=== PATIENT | female | born 1945 | race Caucasian/White ===

== ENCOUNTER 2016-05-15 11:01 | Outpatient (CLI) | payer MEDICARE, MEDICAID ==
[2014-05-10 12:56] VITALS: BP 122/64
[2016-05-15 12:10] LABS: eGFR (African) > 60; eGFR (Non-African) > 60
== END 2016-05-15 11:02 ==
LOC: LAB 11:01
PROVIDERS: ATTEND Internal Medicine Cardiovascular Disease
DX: Z51.81 Encounter for therapeutic drug level monitoring (principal); Z79.01 Long term (current) use of anticoagulants
CPT/HCPCS: 36415; 80048; 85610

== ENCOUNTER 2016-05-31 11:30 | Outpatient (CLI) | payer MEDICARE, MEDICAID ==
[2014-05-10 12:56] VITALS: BP 122/64
[2016-05-31 12:22] LABS: eGFR (African) > 60; eGFR (Non-African) > 60
== END 2016-05-31 11:32 ==
LOC: LAB 11:30
PROVIDERS: ATTEND Internal Medicine Cardiovascular Disease
DX: Z51.81 Encounter for therapeutic drug level monitoring (principal); Z79.01 Long term (current) use of anticoagulants; I50.22 Chronic systolic (congestive) heart failure
CPT/HCPCS: 36415; 80048; 85610

== ENCOUNTER 2016-06-14 11:08 | Outpatient (CLI) | payer MEDICARE, MEDICAID ==
[2014-05-10 12:56] VITALS: BP 122/64
== END 2016-06-14 11:10 ==
LOC: LAB 11:08
PROVIDERS: ATTEND Internal Medicine Cardiovascular Disease
DX: Z51.81 Encounter for therapeutic drug level monitoring (principal); Z79.01 Long term (current) use of anticoagulants
CPT/HCPCS: 36415; 85610

== ENCOUNTER 2016-06-22 10:42 | Outpatient (CLI) | payer MEDICARE, MEDICAID ==
[2014-05-10 12:56] VITALS: BP 122/64
== END 2016-06-22 10:43 ==
LOC: LAB 10:42
PROVIDERS: ATTEND Internal Medicine Cardiovascular Disease
DX: Z51.81 Encounter for therapeutic drug level monitoring (principal); Z79.01 Long term (current) use of anticoagulants; I48.91 Unspecified atrial fibrillation
CPT/HCPCS: 36415; 85610

== ENCOUNTER 2016-06-26 14:55 | Emergency (ER) | payer MEDICARE, MEDICAID ==
--- NOTE | 2016-06-26 15:10 | ED Physician Documentation ---
Chest Pain - HISTORIAN Historian: patient - HPI Onset: other (for 5 weeks) Chest Pain Signs/Symptoms: denies: dyspnea Worsened By: nothing Further Comments: yes - ROS CONST: denies: recent illness, fever - PAST HX NH risk factors: other ( history of 2 previous heart attacks. Stress test/heart cath done in , stint was closing. 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 denies: hypertension, diabetes Type 2 Surgeries/Procedures: cardiac cath, stress test Allergies/Adverse Reactions: Allergies Allergy/AdvReac Type Severity Reaction Status Date / Time No Known Allergies Allergy Verified 06/26/16 15:33 Home Medications: Ambulatory Orders Medication Instructions Recorded Aspirin [Renate] 81 mg PO DAILY 05/08/14 Carvedilol 3.125 mg PO BID 05/08/14 Furosemide 40 mg PO DAILY 05/08/14 Monterey-3S/Dha/Epa/Fish Oil [[place]rey-3 1 each PO BID 05/08/14 Fish Oil 1,000 mg Sfgl] Ubidecarenone [Co Q-10] 1 tab PO DAILY 05/08/14 Warfarin Sodium [Coumadin] 2.5 mg PO DIRECTED 05/08/14 Benzonatate [Tessalon] 100 mg PO TID PRN #20 capsule 06/26/16 Spironolactone [Spironolactone] 25 mg PO AM 06/26/16 - SOCIAL HX Smoking History: quit greater than 1 year Alcohol Use: none - FAMILY HX Family HX: CAD under 55 - VITAL SIGNS Vital Signs: Vital Signs Temp Pulse Resp BP Pulse Ox 121/55 05/10/14 10:00 - REVIEWED ASSESSMENTS Nursing Assessment Reviewed: Yes Vitals Reviewed: Yes Progress - Progress Progress: 15:04 No change in pressure feeling with NTG. - EKG/XRAY/CT EKG: NSR Comments: no acute ischemic changes Discharge Prescriptions: Benzonatate [Tessalon] 100 mg PO TID PRN #20 capsule PRN Reason: Cough Home Medications: Ambulatory Orders Aspirin [Renate] 81 mg PO DAILY 05/08/14 Carvedilol 3.125 mg PO BID 05/08/14 Furosemide 40 mg PO DAILY 05/08/14 Monterey-3S/Dha/Epa/Fish Oil [Mon[place]rey-3 Fish Oil 1,000 mg Sfgl] 1 each PO BID Ubidecarenone [Co Q-10] 1 tab PO DAILY 05/08/14 Warfarin Sodium [Coumadin] 2.5 mg PO DIRECTED 05/08/14 Benzonatate [Tessalon] 100 mg PO TID PRN #20 capsule 06/26/16 Spironolactone [Spironolactone] 25 mg PO AM 06/26/16
[2016-06-26] MEDS ORDERED: NITROGLYCERIN 0.4 MG TAB.SUBL SL PRN (15:17)
[2016-06-26] MEDS ORDERED: NITROGLYCERIN 0.4 MG TAB.SUBL SL ONE (15:22)
[2016-06-26 15:27] LABS: BASOPHILS % 0.4 (0.0-1.5); EOSINOPHILS % 6.1 % (0.0-6.8); LYMPHOCYTES # 2.3 # k/uL (0.6-4.0); MONOCYTES # 0.4 # k/uL (0.0-0.9); MONOCYTES % 4.9 % (0.0-11.0); NEUTROPHILS # 5.4 # k/uL (1.4-7.7)
[2016-06-26 15:43] LABS: eGFR (African) > 60; eGFR (Non-African) > 60
--- NOTE | 2016-06-26 16:05 | Diagnostic Imaging Report ---
ALEX HIRSCH [facility] [id number] On License Of [facility] [address] [address] Report Submission Date: Jun 26, 2016 4:03:57 PM FLOOR COVERINGS INSTALLER Patient Study Name: MACIE CARTER Date: Jun 26, 2016 3:48:25 PM FLOOR COVERINGS INSTALLER Modality Type: CR Gender: F Description: CHEST : 45 Institution: [facility] Physician: ALEX HIRSCH 2 views of the chest History: Chest pain Findings: Comparison: May 09, 2014 Cardiac size upper limits of normal. Patient is post sternotomy. Aortic calcification is present. Calcified granuloma is noted at the right lung base There is no focal consolidation, pleural effusion or pneumothorax. Of there is minimal right basilar atelectasis Degenerative changes of thoracic spine are present Impression: Minimal right basilar atelectasis. Mild cardiomegaly Electronically signed on Jun 26, 2016 4:03:57 PM FLOOR COVERINGS INSTALLER by: Mary NICOLE
[2016-06-26 16:51] VITALS: BP 121/66
== END 2016-06-26 16:49 | disposition home or self-care (01) ==
LOC: ED 14:55
DX: R07.9 Chest pain, unspecified (principal); R06.02 Shortness of breath; Z87.891 Personal history of nicotine dependence
CPT/HCPCS: 71020; 80053; 84484; 85025; 85610; 99283; 99284; S1016

== ENCOUNTER 2016-07-06 11:06 | Outpatient (CLI) | payer MEDICARE, MEDICAID | END 2016-07-06 11:07 | LOC: LAB 11:06 | PROVIDERS: ATTEND Internal Medicine Cardiovascular Disease | DX: Z79.01 Long term (current) use of anticoagulants (principal) | CPT/HCPCS: 36415; 85610 ==

== ENCOUNTER 2016-08-03 10:27 | Outpatient (CLI) | payer MEDICARE, MEDICAID | END 2016-08-03 10:30 | LOC: LAB 10:27 | PROVIDERS: ATTEND Internal Medicine Cardiovascular Disease | DX: Z51.81 Encounter for therapeutic drug level monitoring (principal); Z79.01 Long term (current) use of anticoagulants; I48.0 Paroxysmal atrial fibrillation | CPT/HCPCS: 36415; 85610 ==

== ENCOUNTER 2016-08-24 10:14 | Outpatient (CLI) | payer MEDICARE, MEDICAID | END 2016-08-24 10:16 | LOC: LAB 10:14 | PROVIDERS: ATTEND Internal Medicine Cardiovascular Disease | DX: Z51.81 Encounter for therapeutic drug level monitoring (principal); Z79.01 Long term (current) use of anticoagulants | CPT/HCPCS: 36415; 85610 ==

== ENCOUNTER 2016-09-24 09:18 | Outpatient (CLI) | payer MEDICARE, MEDICAID | END 2016-09-24 09:20 | LOC: LAB 09:18 | PROVIDERS: ATTEND Internal Medicine Cardiovascular Disease | DX: Z79.01 Long term (current) use of anticoagulants (principal) | CPT/HCPCS: 36415; 85610 ==

== ENCOUNTER 2016-10-26 10:54 | Outpatient (CLI) | payer MEDICARE, MEDICAID | END 2016-10-26 11:06 | LOC: LAB 10:54 | PROVIDERS: ATTEND Internal Medicine Cardiovascular Disease | DX: Z79.01 Long term (current) use of anticoagulants (principal) | CPT/HCPCS: 36415; 85610 ==

== ENCOUNTER 2016-11-23 09:20 | Outpatient (CLI) | payer MEDICARE, OTHER | END 2016-11-23 09:21 | LOC: LAB 09:20 | PROVIDERS: ATTEND Internal Medicine Cardiovascular Disease | DX: Z79.01 Long term (current) use of anticoagulants (principal) | CPT/HCPCS: 36415; 85610 ==

== ENCOUNTER 2016-12-05 10:42 | Outpatient (CLI) | payer MEDICARE, OTHER | END 2016-12-05 10:44 | LOC: LAB 10:42 | PROVIDERS: ATTEND Internal Medicine Cardiovascular Disease | DX: Z95.1 Presence of aortocoronary bypass graft (principal); Z79.01 Long term (current) use of anticoagulants | CPT/HCPCS: 36415; 85610 ==

== ENCOUNTER 2016-12-12 10:02 | Outpatient (CLI) | payer MEDICARE, OTHER | END 2016-12-12 10:03 | LOC: LAB 10:02 | PROVIDERS: ATTEND Internal Medicine Cardiovascular Disease | DX: Z79.01 Long term (current) use of anticoagulants (principal) | CPT/HCPCS: 36415; 85610 ==

== ENCOUNTER 2016-12-26 10:17 | Outpatient (CLI) | payer MEDICARE, OTHER | END 2016-12-26 10:25 | LOC: LAB 10:17 | PROVIDERS: ATTEND Internal Medicine Cardiovascular Disease | DX: Z79.01 Long term (current) use of anticoagulants (principal) | CPT/HCPCS: 36415; 85610 ==

== ENCOUNTER 2017-01-21 10:33 | Outpatient (CLI) | payer MEDICARE, OTHER | END 2017-01-21 10:34 | LOC: LAB 10:33 | PROVIDERS: ATTEND Internal Medicine Cardiovascular Disease | DX: Z79.01 Long term (current) use of anticoagulants (principal) | CPT/HCPCS: 36415; 85610 ==

== ENCOUNTER 2017-01-23 11:49 | Outpatient (CLI) | payer MEDICARE, OTHER ==
[2017-01-23] MEDS ORDERED: ALBUTEROL SULFATE 2.5 MG/3 ML AMPUL.NEB NEB ONE (11:57)
[2017-01-23 12:27] LABS: eGFR (African) > 60; eGFR (Non-African) > 60
== END 2017-01-23 11:50 ==
LOC: RT 11:49
PROVIDERS: ATTEND Family Medicine
DX: R05 Cough (principal)
CPT/HCPCS: 36415; 80048; 94060

== ENCOUNTER 2017-01-28 09:48 | Outpatient (CLI) | payer MEDICARE, OTHER ==
--- NOTE | 2017-01-28 11:32 | Diagnostic Imaging Report ---
[facility] [address] [facility].[address] [address] Report Submission Date: Jan 28, 2017 10:58:44 AM CDT Patient Study Name: MACIE CARTER Date: Jan 28, 2017 10:18:11 AM CDT Modality Type: CT\SR Gender: F Description: CT CHEST W/ CONTRAST : 45 Institution: [facility] Physician: WILMAR FRANKEL - STACEY Examination: CT chest History: Chronic cough Comparison exams: Plain film chest dated 26 June 2016 Technique: CT chest with contrast protocol Findings: Scattered emphysematous changes, primarily at the apices. No evidence for spiculated mass or lesion. Calcified granuloma at the right lung base. No posterior pleural thickening or effusion. Anterior mediastinum and sav are without mass or pathologic appearing adenopathy. Few calcified lymph nodes. Thoracic aorta demonstrates peripheral atherosclerotic disease and mural thickening. Cardiac silhouette not enlarged. No pericardial effusion. Coronary vascular calcifications. Lower neck structures without gross abnormality. Osseous structures demonstrate degenerative changes. Sternotomy wires. Gallstones within the gallbladder - no adjacent inflammation. Renal cortical and vascular calcifications. Small hiatal hernia. Remaining upper abdominal organs without acute process. Impression: Scattered emphysematous changes. No suspicious mass/lesion. Gallstones: Not formally evaluated. Small hiatal hernia. Electronically signed on Jan 28, 2017 10:58:44 AM CDT by: Darrion NICOLE
== END 2017-01-28 09:50 ==
LOC: RAD 09:48
PROVIDERS: ATTEND Family Medicine
DX: R05 Cough (principal)
CPT/HCPCS: 71260; Q9966

== ENCOUNTER 2017-02-04 07:10 | Day surgery (SDC) | payer MEDICARE, OTHER ==
[2017-02-04] MEDS ORDERED: PROPOFOL 500 MG/50 ML VIAL IV ONE (08:00)
[2017-02-04] MEDS ORDERED: LACTATED RINGERS 1,000 ML IV.SOLN IV ONE (08:00)
[2017-02-04] MEDS ORDERED: SALINE FLUSH 10 ML DISP.SYRIN IVF ONE (08:00)
--- NOTE | 2017-02-04 14:18 | GI Report ---
REFERRING PHYSICIAN: Dr. Shonna Bill TITLE SEARCH MANAGER: Mayur Chun MD PROCEDURE MEDICATION: Propofol as per anesthesia. INDICATIONS: This 71-year-old woman has apparently had a little bit of epigastric discomfort. She is not a great historian. She denies vomiting. She denies a history of ulcer disease. She has had a hiatal hernia. She does have central obesity. PROCEDURE PERFORMED: Endoscopy and esophageal dilatation with biopsies followed by a colonoscopy. PROCEDURE: An Olympus video endoscope is passed through the esophagus under direct visualization. She does have what appears to be a slight stricture at the GE junction and grade 2 esophagitis. In the stomach, cardia shows a hiatal hernia. Fundus and body of antrum with mild gastritis. Biopsies for H. Pylori taken. Duodenal bulb and first and second part of the duodenum exam were normal. A guidewire is placed in the stomach. Endoscope is removed and up to a 16 mm, which is a 48 Swedish, passed without resistance. The endoscope was reintroduced. There was a little friability but no bleeding after the dilatation. Again, biopsies were taken of the GE junction. The patient tolerated the procedure well, though she had transient drop in oxygen saturation , though it immediately came back up. FINDINGS: 1. Distal esophagitis and stricture dilated to a 48-Swedish and biopsied. 2. Hiatal hernia. 3. Gastritis. RECOMMENDATIONS: 1. Will be on a PPI at a.c. first meal daily. 2. Elevate the head of the bed. 3. Smaller meals. 4. Not eating late at night would be beneficial. 5. Follow up biopsy results. cc: Dr. Shonna NICOLE
--- NOTE | 2017-02-04 14:26 | GI Report ---
REFERRING PHYSICIAN: Dr. Shonna Bill SKILLED LABORER: Mayur Chun MD PROCEDURE MEDICATION: Propofol as per anesthesia. INDICATIONS: The patient has had previous polyps on the last 2 colonoscopies. The last colonoscopy was over 5 years ago. She denies changes in bowel habits or bleeding. PROCEDURE PERFORMED: Colonoscopy. PROCEDURE: An Olympus video colonoscope was advanced through the rectum. She does have some diverticular disease of the sigmoid and descending colon. A slightly atonic redundant colon, though we were able to advance all the way to the cecum. The appendiceal orifice and ileocecal valve looked normal. On slow withdrawal, the cecum, ascending colon, and transverse colon with no obvious intraluminal lesions noted. The descending colon and sigmoid with scattered diverticula but no diverticulitis. No obvious intraluminal lesions were noted. Retroflexion of the rectum was normal. Patient tolerated the procedure well. FINDINGS: 1. Mild diverticular disease of the colon. 2. An atonic redundant colon. 3. No polyps seen. RECOMMENDATIONS: 1. High-fiber diet. 2. Follow up with Dr. Bill. 3. Consider re-looking at her colon within 10 years, sooner if clinically indicated. cc: Dr. Shonna NICOLE
== END 2017-02-04 07:11 ==
LOC: OPSURG 07:10
PROVIDERS: ATTEND Internal Medicine Gastroenterology
DX: K21.0 Gastro-esophageal reflux disease with esophagitis (principal); K29.70 Gastritis, unspecified, without bleeding; K22.2 Esophageal obstruction; K44.9 Diaphragmatic hernia without obstruction or gangrene; K57.30 Diverticulosis of large intestine without perforation or abscess without bleeding; K59.8 Other specified functional intestinal disorders; Z86.010 Personal history of colon polyps; E66.8 Other obesity; R10.84 Generalized abdominal pain
CPT/HCPCS: 36415; 43239; 43248; 45378; 85610; 88305; J2704; J7120; S1016

== ENCOUNTER 2017-02-14 09:37 | Outpatient (CLI) | payer MEDICARE, OTHER ==
[2017-02-14 10:29] LABS: eGFR (African) > 60; eGFR (Non-African) > 60
== END 2017-02-14 09:40 ==
LOC: LAB 09:37
PROVIDERS: ATTEND Internal Medicine Cardiovascular Disease
DX: Z79.01 Long term (current) use of anticoagulants (principal)
CPT/HCPCS: 36415; 80048; 85610

== ENCOUNTER 2017-02-28 12:11 | Outpatient (CLI) | payer MEDICARE, OTHER | END 2017-02-28 12:12 | LOC: LAB 12:11 | PROVIDERS: ATTEND Internal Medicine Cardiovascular Disease | DX: I50.22 Chronic systolic (congestive) heart failure (principal); Z79.01 Long term (current) use of anticoagulants | CPT/HCPCS: 36415; 85610 ==

== ENCOUNTER 2017-03-28 09:08 | Outpatient (CLI) | payer MEDICARE, OTHER | END 2017-03-28 11:25 | LOC: LAB 09:08 | PROVIDERS: ATTEND Internal Medicine Cardiovascular Disease | DX: Z79.01 Long term (current) use of anticoagulants (principal) | CPT/HCPCS: 36415; 85610 ==

== ENCOUNTER 2017-04-26 10:42 | Outpatient (CLI) | payer MEDICARE, OTHER | END 2017-04-26 11:45 | LOC: LAB 10:42 | PROVIDERS: ATTEND Internal Medicine Cardiovascular Disease | DX: I25.10 Atherosclerotic heart disease of native coronary artery without angina pectoris (principal); I50.22 Chronic systolic (congestive) heart failure | CPT/HCPCS: 36415; 85610 ==

== ENCOUNTER 2017-05-03 10:26 | Outpatient (CLI) | payer MEDICARE | END 2017-05-03 10:30 | LOC: LAB 10:26 | PROVIDERS: ATTEND Internal Medicine Cardiovascular Disease | DX: I25.10 Atherosclerotic heart disease of native coronary artery without angina pectoris (principal); I50.22 Chronic systolic (congestive) heart failure | CPT/HCPCS: 36415; 85610 ==

== ENCOUNTER 2017-05-09 10:50 | Outpatient (CLI) | payer MEDICARE | END 2017-05-09 10:52 | LOC: LAB 10:50 | PROVIDERS: ATTEND Internal Medicine Cardiovascular Disease | DX: I25.10 Atherosclerotic heart disease of native coronary artery without angina pectoris (principal); I50.22 Chronic systolic (congestive) heart failure | CPT/HCPCS: 36415; 85610 ==

== ENCOUNTER 2017-05-21 20:40 | Emergency (ER) | payer MEDICARE, OTHER ==
[2017-05-21] MEDS ORDERED: OXYMETAZOLINE HCL 0.05% NASAL SPRAY NS ONE (21:05)
--- NOTE | 2017-05-21 21:10 | ED Physician Documentation ---
Epistaxis - HISTORIAN Historian: patient, child - HPI Stated Complaint: NOSEBLEED Chief Complaint: Epistaxis Additional Information: epistaxis onset int since 1700-ess stopped now lt nostril. pt is on coumadin plavix and asa-last protime 2 weeks ago sched for another 2 days Onset: hours (1700) Timing: better Location: left Severity: mild Associated Symptoms: denies: recent injury, recent illness, fever, chills, sweating - ROS MS/SKIN/LYMPH: denies: excessive bruising, bleeding from gums, bleeding from GI , bleeding from EYES/ENT: denies: problems with vision, sore throat GI/: denies: problems urinating CVS/RESP: denies: chest pain, difficulty breathing NEURO/PSYCH: denies: dizziness, anxiety, depression - PAST HX Past History: previous nosebleeds Other History: cardiac disease, other (hypothryoid. pt has also hilda cabg lx 2w and multi stents pacemaker defibrillator) Immunizations: UTD Allergies/Adverse Reactions: Allergies Allergy/AdvReac Type Severity Reaction Status Date / Time No Known Allergies Allergy Verified 05/21/17 21:06 Home Medications: Ambulatory Orders Medication Instructions Recorded Aspirin [Renate] 81 mg PO DAILY 05/08/14 Carvedilol 3.125 mg PO BID 05/08/14 Perry-3S/Dha/Epa/Fish Oil [Perry-3 1 each PO BID 05/08/14 Fish Oil 1,000 mg Sfgl] Ubidecarenone [Co Q-10] 1 tab PO DAILY 05/08/14 Benzonatate [Tessalon] 100 mg PO TID PRN #20 capsule 06/26/16 Spironolactone [Spironolactone] 25 mg PO AM 06/26/16 - SOCIAL HX Smoking History: non-smoker (for 30 yrs) Alcohol Use: none Drug Use: none - FAMILY HX Family History: No - VITAL SIGNS Vital Signs: Vital Signs Temp Pulse Resp BP Pulse Ox 98.4 F 77 20 152/72 96 05/21/17 20:40 05/21/17 20:40 05/21/17 20:40 05/21/17 20:40 05/21/17 20:40 - REVIEWED ASSESSMENTS Nursing Assessment Reviewed: Yes Vitals Reviewed: Yes ED Results Lab/Radiology - Lab Results Lab Results: INR= 2.37 - Orders Orders: ED Orders Category Date Time Status PT [PT-INR] Routine Lab 05/21/17 Ordered Oxymetazoline HCl [Afrin 0.05%] Med 05/21/17 21:05 Once 1 spray NS NOW ONE Epistaxis Physical Exam - EXAM General Appearance: mild distress Nose: no active bleeding (lt nares quite red w/ occ bloting w/kleenex) Head/Neck: atraumatic, thyroid nml. No: facial swelling, erythema Eyes/Ears: eyes nml inspection Mouth: pharynx nml. No: bleeding from nasopharynx Neuro/Psych: oriented x3, neuro intact, mood/affect nml. No: disoriented Respiratory: no resp distress, breath sounds normal CVS: reg rate & rhythm, heart sounds normal Abdomen: non-tender Skin: nml color, no skin rash. No: pallor, cyanosis, skin rash, ecchymosis Discharge Clincal Impression: ACUTE EPISTAXIS, MULTI ANTICOAGULANT, ISCHEMIC HEART DISEASE Referrals: Shonna Bill MD [Primary Care Provider] - 2 Days Additional Instructions: USE NEOSYNEPHRINE W/ COTTON PLEDGET TO BLEEDING SITE DIRECTED-SEE PCP TOMORROW Condition: Good Disposition: 01 HOME, SELF-CARE Decision to Admit: NO Decision Time: 21:42
[2017-05-21 22:19] VITALS: BP 155/50
== END 2017-05-21 21:50 | disposition home or self-care (01) ==
LOC: ED 20:40
DX: R04.0 Epistaxis (principal); I25.9 Chronic ischemic heart disease, unspecified; Z79.01 Long term (current) use of anticoagulants
CPT/HCPCS: 85610; 99282

== ENCOUNTER 2017-06-04 09:32 | Outpatient (CLI) | payer MEDICARE, OTHER ==
[2017-06-04 09:48] LABS: BASOPHILS % 1.2 (0.0-1.5); EOSINOPHILS % 4.4 % (0.0-6.8); MEAN CORPUSCULAR HEMOGLOBIN 31.6 pg (28.0-34.0); MEAN CORPUSCULAR VOLUME 96.1 fl (80.0-100.0); MONOCYTES % 6.4 % (0.0-11.0); NEUTROPHILS # 4.6 # k/uL (1.4-7.7)
[2017-06-04 11:45] LABS: eGFR (African) > 60; eGFR (Non-African) > 60
== END 2017-06-04 09:33 ==
LOC: LAB 09:32
PROVIDERS: ATTEND Family Medicine
DX: I25.10 Atherosclerotic heart disease of native coronary artery without angina pectoris (principal); D64.9 Anemia, unspecified; E03.9 Hypothyroidism, unspecified
CPT/HCPCS: 36415; 80053; 80061; 84443; 85025

== ENCOUNTER 2017-06-21 10:57 | Outpatient (CLI) | payer MEDICARE, OTHER | END 2017-06-21 11:00 | LOC: LAB 10:57 | PROVIDERS: ATTEND Internal Medicine Cardiovascular Disease | DX: I25.10 Atherosclerotic heart disease of native coronary artery without angina pectoris (principal); I50.22 Chronic systolic (congestive) heart failure | CPT/HCPCS: 36415; 85610 ==

== ENCOUNTER 2017-07-16 11:49 | Outpatient (CLI) | payer MEDICARE, OTHER | END 2017-07-16 11:50 | LOC: LAB 11:49 | PROVIDERS: ATTEND Internal Medicine Cardiovascular Disease | DX: I25.10 Atherosclerotic heart disease of native coronary artery without angina pectoris (principal); I50.22 Chronic systolic (congestive) heart failure | CPT/HCPCS: 36415; 85610 ==

== ENCOUNTER 2017-08-13 10:48 | Outpatient (CLI) | payer MEDICARE, MEDICAID | END 2017-08-13 10:50 | LOC: LAB 10:48 | PROVIDERS: ATTEND Internal Medicine Cardiovascular Disease | DX: I25.10 Atherosclerotic heart disease of native coronary artery without angina pectoris (principal); I50.22 Chronic systolic (congestive) heart failure | CPT/HCPCS: 36415; 85610 ==

== ENCOUNTER 2017-09-12 10:28 | Outpatient (CLI) | payer MEDICARE, MEDICAID | END 2017-09-12 10:30 | LOC: LAB 10:28 | PROVIDERS: ATTEND Internal Medicine Cardiovascular Disease | DX: I25.10 Atherosclerotic heart disease of native coronary artery without angina pectoris (principal); I50.22 Chronic systolic (congestive) heart failure | CPT/HCPCS: 36415; 85610 ==

== ENCOUNTER 2017-10-11 12:02 | Outpatient (CLI) | payer MEDICARE, OTHER | END 2017-10-11 12:04 | LOC: LAB 12:02 | PROVIDERS: ATTEND Internal Medicine Cardiovascular Disease | DX: I50.22 Chronic systolic (congestive) heart failure (principal); I25.10 Atherosclerotic heart disease of native coronary artery without angina pectoris | CPT/HCPCS: 36415; 85610 ==

== ENCOUNTER 2017-10-21 14:43 | Outpatient (CLI) | payer MEDICARE, OTHER | END 2017-10-21 14:44 | LOC: LAB 14:43 | PROVIDERS: ATTEND Internal Medicine Cardiovascular Disease | DX: Z79.01 Long term (current) use of anticoagulants (principal) | CPT/HCPCS: 36415; 85610 ==

== ENCOUNTER 2017-11-20 10:25 | Outpatient (CLI) | payer MEDICARE, OTHER | END 2017-11-20 10:26 | LOC: LAB 10:25 | PROVIDERS: ATTEND Internal Medicine Cardiovascular Disease | DX: I25.10 Atherosclerotic heart disease of native coronary artery without angina pectoris (principal); I50.22 Chronic systolic (congestive) heart failure | CPT/HCPCS: 36415; 85610 ==

== ENCOUNTER 2017-12-24 10:29 | Outpatient (CLI) | payer MEDICARE, OTHER | END 2017-12-24 13:51 | LOC: LAB 10:29 | PROVIDERS: ATTEND Internal Medicine Cardiovascular Disease | DX: I25.10 Atherosclerotic heart disease of native coronary artery without angina pectoris (principal); I50.22 Chronic systolic (congestive) heart failure | CPT/HCPCS: 36415; 85610 ==

== ENCOUNTER 2018-01-21 10:01 | Outpatient (CLI) | payer MEDICARE, OTHER | END 2018-01-21 10:03 | LOC: LAB 10:01 | PROVIDERS: ATTEND Internal Medicine Cardiovascular Disease | DX: I25.10 Atherosclerotic heart disease of native coronary artery without angina pectoris (principal); I50.22 Chronic systolic (congestive) heart failure | CPT/HCPCS: 36415; 85610 ==

== ENCOUNTER 2018-01-23 10:37 | Outpatient (CLI) | payer MEDICARE, OTHER ==
[2018-01-23 11:09] LABS: eGFR (Non-African) > 60
== END 2018-01-23 10:40 ==
LOC: LAB 10:37
PROVIDERS: ATTEND Internal Medicine Cardiovascular Disease
DX: I50.22 Chronic systolic (congestive) heart failure (principal)
CPT/HCPCS: 36415; 80048

== ENCOUNTER 2018-02-13 10:57 | Outpatient (CLI) | payer MEDICARE, OTHER ==
[2018-02-13 12:32] LABS: eGFR (Non-African) > 60
== END 2018-02-13 11:00 ==
LOC: LAB 10:57
PROVIDERS: ATTEND Internal Medicine Cardiovascular Disease
DX: I25.10 Atherosclerotic heart disease of native coronary artery without angina pectoris (principal); I50.22 Chronic systolic (congestive) heart failure
CPT/HCPCS: 36415; 80048; 85610

== ENCOUNTER 2018-03-13 11:51 | Outpatient (CLI) | payer MEDICARE, OTHER | END 2018-03-13 11:53 | LOC: LAB 11:51 | PROVIDERS: ATTEND Internal Medicine Cardiovascular Disease | DX: I25.10 Atherosclerotic heart disease of native coronary artery without angina pectoris (principal); I50.22 Chronic systolic (congestive) heart failure | CPT/HCPCS: 36415; 85610 ==

== ENCOUNTER 2018-03-27 11:17 | Outpatient (CLI) | payer MEDICARE, OTHER ==
[2018-03-27 12:08] LABS: eGFR (Non-African) > 60
== END 2018-03-27 11:22 | disposition home or self-care (01) ==
LOC: LAB 11:17
PROVIDERS: ATTEND Internal Medicine Cardiovascular Disease
DX: I25.10 Atherosclerotic heart disease of native coronary artery without angina pectoris (principal); I50.22 Chronic systolic (congestive) heart failure
CPT/HCPCS: 36415; 80048; 85610

== ENCOUNTER 2018-04-09 10:36 | Outpatient (CLI) | payer MEDICARE, OTHER ==
[2018-04-09 14:12] LABS: eGFR (Non-African) > 60
== END 2018-04-09 10:38 ==
LOC: LAB 10:36
PROVIDERS: ATTEND Internal Medicine Cardiovascular Disease
DX: I25.10 Atherosclerotic heart disease of native coronary artery without angina pectoris (principal); I50.22 Chronic systolic (congestive) heart failure
CPT/HCPCS: 36415; 80048; 85610

== ENCOUNTER 2018-04-16 10:13 | Outpatient (CLI) | payer MEDICARE, OTHER | END 2018-04-16 10:14 | LOC: LAB 10:13 | PROVIDERS: ATTEND Internal Medicine Cardiovascular Disease | DX: Z79.01 Long term (current) use of anticoagulants (principal) | CPT/HCPCS: 36415; 85610 ==

== ENCOUNTER 2018-04-23 10:22 | Outpatient (CLI) | payer MEDICARE, OTHER ==
[2018-04-23 17:28] LABS: eGFR (Non-African) > 60
== END 2018-04-23 10:23 ==
LOC: LAB 10:22
PROVIDERS: ATTEND Internal Medicine Cardiovascular Disease
DX: I50.22 Chronic systolic (congestive) heart failure (principal)
CPT/HCPCS: 36415; 80048; 85610

== ENCOUNTER 2018-05-08 10:34 | Outpatient (CLI) | payer MEDICARE, OTHER | END 2018-05-08 10:36 | LOC: LAB 10:34 | PROVIDERS: ATTEND Internal Medicine Cardiovascular Disease | DX: Z79.01 Long term (current) use of anticoagulants (principal) | CPT/HCPCS: 36415; 85610 ==

== ENCOUNTER 2018-05-14 10:20 | Outpatient (CLI) | payer MEDICARE, OTHER | END 2018-05-14 10:22 | LOC: LAB 10:20 | PROVIDERS: ATTEND Internal Medicine Cardiovascular Disease | DX: Z79.01 Long term (current) use of anticoagulants (principal); Z51.81 Encounter for therapeutic drug level monitoring | CPT/HCPCS: 36415; 85610 ==

== ENCOUNTER 2018-05-30 10:04 | Outpatient (CLI) | payer MEDICARE, OTHER | END 2018-05-30 10:10 | LOC: LAB 10:04 | PROVIDERS: ATTEND Internal Medicine Cardiovascular Disease | DX: Z79.01 Long term (current) use of anticoagulants (principal); Z51.81 Encounter for therapeutic drug level monitoring | CPT/HCPCS: 36415; 85610 ==

== ENCOUNTER 2018-06-16 10:11 | Outpatient (CLI) | payer MEDICARE, OTHER | END 2018-06-16 10:20 | LOC: LAB 10:11 | PROVIDERS: ATTEND Internal Medicine Cardiovascular Disease | DX: Z79.01 Long term (current) use of anticoagulants (principal) | CPT/HCPCS: 36415; 85610 ==

== ENCOUNTER 2018-06-25 11:34 | Outpatient (CLI) | payer MEDICARE, OTHER | END 2018-06-25 11:36 | LOC: LAB 11:34 | PROVIDERS: ATTEND Internal Medicine Cardiovascular Disease | DX: Z79.01 Long term (current) use of anticoagulants (principal) | CPT/HCPCS: 36415; 85610 ==

== ENCOUNTER 2018-07-09 09:08 | Outpatient (CLI) | payer MEDICARE, MEDICAID ==
--- NOTE | 2018-07-09 15:21 | Diagnostic Imaging Report ---
AGUS ESCOTO [facility] [address] [facility] [address] [place], [place]. [address] Report Submission Date: Jul 09, 2018 2:43:12 PM DIE BAKER Patient Study Name: MARLENE NEVILLE Date: Jul 09, 2018 1:54:18 PM DIE BAKER Modality Type: CT\SR Gender: F Description: CT PELVIS W/O CONTRAST : [birth year] Institution: [facility] Physician: AGUS ESCOTO Exam: CT pelvis without contrast. History: Follow-up right hip fracture. Axial images through the right hip are submitted along with sagittal and coronal reformatted images. An intramedullary device in the proximal right femur is noted. A healed right intertrochanteric fracture is noted. Mild narrowing, sclerosis and spurring of both hip joints are noted. Narrowing, sclerosis and spurring at the symphysis pubis is noted. No acute fracture of the pubis bones are noted. No other soft tissue abnormalities are identified. Impression: Status post ORIF proximal right femur fracture. Degenerative changes in both hip joints and at the symphysis pubis. No pubic bone fractures are identified. Electronically signed on Jul 09, 2018 2:43:12 PM DIE BAKER by: Samuel NICOLE
--- NOTE | 2018-07-09 15:33 | Diagnostic Imaging Report ---
WILMAR FRANKEL [facility] [address] [facility] [address] [address] Report Submission Date: Jul 09, 2018 2:44:42 PM PBX REPAIRER Patient Study Name: MACIE CARTER Date: Jul 09, 2018 2:06:55 PM PBX REPAIRER Modality Type: US Gender: F Description: US ABDOMEN LIMITED : 45 Institution: [facility] Physician: WILMAR FRANKEL Examination: Ultrasound gallbladder History: Epigastric discomfort Findings: Sonographic evaluation of the right upper quadrant demonstrates the gallbladder with numerous stones. Gallbladder wall measures 2.4 mm. Common bile duct measures 3.5 mm. No intrahepatic biliary dilation. Liver demonstrates normal homogeneous echogenicity. No mass or cyst. Normal flow on color analysis. Normal portal vein Doppler waveform. Right kidney measures 8.3 cm in length. No cortical mass or cyst. No hydronephrosis. Pancreatic region without gross irregularity. Impression: Gallstones. No abnormal gallbladder wall thickening. No abnormal common bile duct dilation. Electronically signed on Jul 09, 2018 2:44:42 PM PBX REPAIRER by: Darrion NICOLE
== END 2018-07-09 09:10 ==
LOC: LAB 09:08
PROVIDERS: ATTEND Internal Medicine Cardiovascular Disease
DX: Z79.01 Long term (current) use of anticoagulants (principal); K80.20 Calculus of gallbladder without cholecystitis without obstruction; R10.11 Right upper quadrant pain
CPT/HCPCS: 36415; 76705; 85610

== ENCOUNTER 2018-08-01 10:31 | Outpatient (CLI) | payer MEDICARE, MEDICAID | END 2018-08-01 10:40 | LOC: LAB 10:31 | PROVIDERS: ATTEND Internal Medicine Cardiovascular Disease | DX: Z79.01 Long term (current) use of anticoagulants (principal) | CPT/HCPCS: 36415; 85610 ==

== ENCOUNTER 2018-08-11 10:17 | Outpatient (CLI) | payer MEDICARE, MEDICAID | END 2018-08-11 10:19 | LOC: LAB 10:17 | PROVIDERS: ATTEND Internal Medicine Cardiovascular Disease | DX: Z79.01 Long term (current) use of anticoagulants (principal) | CPT/HCPCS: 36415; 85610 ==

== ENCOUNTER 2018-08-15 12:01 | Outpatient (CLI) | payer MEDICARE, MEDICAID ==
--- NOTE | 2018-08-15 13:06 | Diagnostic Imaging Report ---
CHERYL ESCOTO [facility] [address] [facility] [address] [address] Report Submission Date: Aug 15, 2018 12:53:47 PM CDT Patient Study Name: MACIE CARTER Date: Aug 15, 2018 12:10:20 PM CDT Modality Type: DX Gender: F Description: L SPINE 2 OR 3 VIEWS : 45 Institution: [facility] Physician: CHERYL ESCOTO Examination: Plain film lumbar spine History: RIGHT SIDE BACK PAIN, NO TRAUMA Findings: 3 views of the lumbar spine demonstrates osteopenia. No anterior compression. Scattered osteophytes. Curvature to the left. Vascular calcifications. Impression: Osteopenia, curvature and degenerative changes. No compression deformity. Electronically signed on Aug 15, 2018 12:53:47 PM CDT by: Darrion NICOLE
--- NOTE | 2018-08-15 13:07 | Diagnostic Imaging Report ---
CHERYL ESCOTO [facility] [address] [facility].[address] [address] Report Submission Date: Aug 15, 2018 12:55:00 PM CDT Patient Study Name: MACIE CARTER Date: Aug 15, 2018 12:09:22 PM CDT Modality Type: DX Gender: F Description: T SPINE 3 VIEWS : 45 Institution: [facility] Physician: CHERYL ESCOTO Examination: Plain film thoracic spine History: RIGHT SIDE BACK PAIN, NO TRAUMA Findings: 3 views of the thoracic spine demonstrates osteopenia. No anterior compression. Osteophytes. Kyphosis. No soft tissue abnormalities. Impression: Osteopenia and degenerative changes. Kyphosis. Electronically signed on Aug 15, 2018 12:55:00 PM CDT by: Darrion NICOLE
== END 2018-08-15 12:10 ==
LOC: RAD 12:01
PROVIDERS: ATTEND Family Medicine
DX: M85.88 Other specified disorders of bone density and structure, other site (principal); M40.204 Unspecified kyphosis, thoracic region; M54.5 Low back pain; M54.6 Pain in thoracic spine
CPT/HCPCS: 72072; 72100

== ENCOUNTER 2018-08-25 09:56 | Outpatient (CLI) | payer MEDICARE, MEDICAID | END 2018-08-25 09:57 | LOC: LAB 09:56 | PROVIDERS: ATTEND Internal Medicine Cardiovascular Disease | DX: Z79.01 Long term (current) use of anticoagulants (principal) | CPT/HCPCS: 36415; 85610 ==

== ENCOUNTER 2018-09-24 10:46 | Outpatient (CLI) | payer MEDICARE, MEDICAID | END 2018-09-24 10:48 | LOC: LAB 10:46 | PROVIDERS: ATTEND Internal Medicine Cardiovascular Disease | DX: Z79.01 Long term (current) use of anticoagulants (principal) | CPT/HCPCS: 36415; 85610 ==

== ENCOUNTER 2018-11-11 10:05 | Outpatient (CLI) | payer MEDICARE, MEDICAID | END 2018-11-11 10:07 | LOC: LAB 10:05 | PROVIDERS: ATTEND Internal Medicine Cardiovascular Disease | DX: Z79.01 Long term (current) use of anticoagulants (principal); Z51.81 Encounter for therapeutic drug level monitoring | CPT/HCPCS: 36415; 85610 ==

== ENCOUNTER 2018-12-04 10:29 | Outpatient (CLI) | payer MEDICARE, MEDICAID | END 2018-12-04 10:32 | LOC: LAB 10:29 | PROVIDERS: ATTEND Internal Medicine Cardiovascular Disease | DX: Z79.01 Long term (current) use of anticoagulants (principal); Z51.81 Encounter for therapeutic drug level monitoring | CPT/HCPCS: 36415; 85610 ==

== ENCOUNTER 2019-01-07 10:22 | Outpatient (CLI) | payer MEDICARE, MEDICAID | END 2019-01-07 10:24 | LOC: LAB 10:22 | PROVIDERS: ATTEND Internal Medicine Cardiovascular Disease | DX: Z51.81 Encounter for therapeutic drug level monitoring (principal); Z79.01 Long term (current) use of anticoagulants | CPT/HCPCS: 36415; 85610 ==

== ENCOUNTER 2019-02-05 10:24 | Outpatient (CLI) | payer MEDICARE, MEDICAID | END 2019-02-05 10:26 | LOC: LAB 10:24 | PROVIDERS: ATTEND Internal Medicine Cardiovascular Disease | DX: Z79.01 Long term (current) use of anticoagulants (principal); Z51.81 Encounter for therapeutic drug level monitoring | CPT/HCPCS: 36415; 85610 ==

== ENCOUNTER 2019-03-02 10:38 | Outpatient (CLI) | payer MEDICARE, MEDICAID | END 2019-03-02 10:43 | LOC: LAB 10:38 | PROVIDERS: ATTEND Internal Medicine Cardiovascular Disease | DX: Z79.01 Long term (current) use of anticoagulants (principal); Z51.81 Encounter for therapeutic drug level monitoring | CPT/HCPCS: 36415; 85610 ==

== ENCOUNTER 2019-03-16 09:32 | Outpatient (CLI) | payer MEDICARE, MEDICAID | END 2019-03-16 09:37 | LOC: LAB 09:32 | PROVIDERS: ATTEND Internal Medicine Cardiovascular Disease | DX: Z51.81 Encounter for therapeutic drug level monitoring (principal); Z79.01 Long term (current) use of anticoagulants | CPT/HCPCS: 36415; 85610 ==

== ENCOUNTER 2019-03-31 10:06 | Outpatient (CLI) | payer MEDICARE, MEDICAID | END 2019-03-31 10:10 | LOC: LAB 10:06 | PROVIDERS: ATTEND Internal Medicine Cardiovascular Disease | DX: Z51.81 Encounter for therapeutic drug level monitoring (principal); Z79.01 Long term (current) use of anticoagulants | CPT/HCPCS: 36415; 85610 ==

== ENCOUNTER 2019-04-14 10:12 | Outpatient (CLI) | payer MEDICARE, MEDICAID | END 2019-04-14 10:17 | LOC: LAB 10:12 | PROVIDERS: ATTEND Internal Medicine Cardiovascular Disease | DX: Z51.81 Encounter for therapeutic drug level monitoring (principal); Z79.01 Long term (current) use of anticoagulants | CPT/HCPCS: 36415; 85610 ==

== ENCOUNTER 2019-05-14 09:55 | Outpatient (CLI) | payer MEDICARE, MEDICAID | END 2019-05-14 10:00 | LOC: LAB 09:55 | PROVIDERS: ATTEND Internal Medicine Cardiovascular Disease | DX: Z51.81 Encounter for therapeutic drug level monitoring (principal); Z79.01 Long term (current) use of anticoagulants | CPT/HCPCS: 36415; 85610 ==